=== PATIENT | female | born 1950 | race Caucasian/White ===

== ENCOUNTER → 2019-02-06 | Outpatient (CLI) | payer MEDICARE ==
[~2019-02-06] MED LIST: CALC-1 PO; CLOB15CR22 TP; DICL100G39 TP; ESTR1TAB28 PO; ESZ2 PO; IBUP100T52 PO; MONT10TA PO; MONT10TA4 PO; PNEI IJ; PNEU0.5D3 IM; ROSU20TA24 PO; SIMV-49 PO
[2019-02-06 09:01] LABS: PLATELET COUNT, AUTOMATED 205 K/uL (150-450)
[2019-02-06 09:32] LABS: LDL CHOLESTEROL 59 mg/dl
== END ==
LOC: LAB 08:27
PROVIDERS: ATTEND Internal Medicine
DX: E78.5 Hyperlipidemia, unspecified (principal); M19.90 Unspecified osteoarthritis, unspecified site
CPT/HCPCS: 36415; 81001; 82040; 82247; 82310; 82374; 82435; 82465; 82565; 82947; 83718; 84075; 84132; 84155; 84295; 84443; 84450; 84460; 84478; 84520; 85025

== ENCOUNTER → 2019-02-16 | Outpatient (CLI) | payer MEDICARE | LOC: LAB 11:01 | PROVIDERS: ATTEND Internal Medicine | DX: Z11.59 Encounter for screening for other viral diseases (principal) | CPT/HCPCS: 36415; G0472; 86803 ==